=== PATIENT | male | born 1960 | race Caucasian/White ===

== ENCOUNTER → 2016-12-31 | Outpatient (CLI) | payer BC ==
[~2016-12-31] MED LIST: ACETAMINOPHEN PO; FISH OIL 1,0001 CAP PO; GLUCOSAMINE & C1 CAP PO; MULTI VITAMIN1 EACH PO; ROXICODONE5 MG PO; VITAMIN C500 M1 PO; XARELTO20 MG PO; ZINC30 M1 PO; ZINC50 M1 PO
--- NOTE | ~2016-12-31 | NM23 ---
[facility] Service of [facility] & [facility] RADIOLOGY TEXT RESULTS PATIENT: JAYNA BATES LOCATION: [facility] : 64 UNIT #: [id number] AGE: [address]: Toby Vazquez MD SEX: M ORDER DR: [id number] [id number] [facility]. [place], [place] [address] [id number] O MR#: [id number] Acc #: [id number] NAME: JAYNA BATES : 1960 SEX: M STUDY DATE/TIME: 12/31/2016 12:05 UNIT: [facility] ROOM: STUDY DESCRIPTION: OR I-131 Total Body Scan Attending Physician: Toby Vazquez M.D. Referring Physician: Toby Vazquez M.D. Ordering Physician: Toby Vazquez M.D. Primary Care Physician: Scott Fontanez M.D. MEDICAL IMAGING REPORT This report is preliminary unless electronic signature is present EXAM Iodine-131 whole-body body scan INDICATIONS Thyroid cancer. FINDINGS Patient was given 4.90 mCi of Iodine-131 on 12/29/2016, and 48 hours later anterior and posterior images of the body were obtained with oblique views of the neck. There is physiologic uptake in the stomach and bladder and salivary tissue. There is minimal uptake in the thyroid bed. IMPRESSION There is faint uptake in the thyroid bed suggesting some residual thyroid tissue or tumor in that region. The uptake has a somewhat band-like distribution in the lower neck. Otherwise study is normal. Dictated by... Jeff Nieves M.D. THIS IS AN ELECTRONICALLY VERIFIED REPORT Jeff Nieves M.D. at 12/31/2016 3:20 PM FEL/to TD: 12/31/2016 14:43 JOB #: [id number] MEDICAL IMAGING REPORT COPY
--- NOTE | ~2016-12-31 | OR ---
Unit #: [id number] #: [id number] Patient: SALOMON GALO [id number] [address] [address] [id number] O MR#: [id number] NAME: SALOMON GALO ROOM: Date of Procedure: 12/31/2016 Admission Date: 12/31/2016 Surgeon: Toby Vazquez M.D. : 1960 Attending Physician: Toby Vazquez M.D. Referring Physician: Toby Vazquez M.D. Primary Care Physician: Scott Fontanez M.D. 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 PROCEDURE I-131 ablation. INDICATIONS Mr. Salomon Galo is a pleasant 56-year-old gentleman who carries a diagnosis of stage IIIA adenocarcinoma of the rectum. He has undergone complete treatment including resection, chemotherapy, and radiotherapy. Patient was found recently to have a thyroid nodule on PET CT imaging. This was biopsied and found to be benign. However, posterior to the thyroid nodule there was a suspicious lesion which was ultimately needled and found to be papillary carcinoma. As a result, patient underwent total thyroidectomy dated November 24, 2016. He had a 26 gram gland with a 1.5 cm tumor located in the right lobe and a 3 mm tumor located in the isthmus. Patient subsequently was placed on replacement therapy, and he was seen in consultation December 08, 2016. Patient was informed he would need repeat I-131 scanning to see if there was any residual disease. This was, in fact, performed today, December 31, 2016. Patient initially had a 5 mCi dose. There was faint uptake in the thyroid bed suggestive of potential residual thyroid tissue versus malignancy. As a result, patient was deemed a candidate for radioactive ablation. PROCEDURE Patient was seen in the nuclear medicine suite at [facility]. A prescribed dose of 150 mCi I-131 had been ordered. This was delivered an oral route. The actual assay dose was 159 mCi I-131. Patient was given complete instructions including isolation for four days, as well as low-iodine diet and general radiation exposure precautions. He is instructed to return to our office in four weeks for further followup evaluation. He will once again begin replacement Synthroid therapy in approximately three days. Patient will call if he has any difficulty in the interim. No complications were experienced, and patient is in very stable condition experiencing very minimal lethargy as a result of Synthroid withdrawal. Dictated by... José Miguel Johns Unit #: [id number] #: [id number] Patient: SALOMON GALO TD: 12/31/2016 21:30 JOB #: [id number] CC: José Miguel Mayes M.D. PROCEDURE OPERATIVE NOTE X Tboy Vazquez MD PROCEDURE OPERATIVE NOTE
== END | disposition home or self-care (01) ==
LOC: CNUC 10:42
DX: C73 Malignant neoplasm of thyroid gland (principal); C20 Malignant neoplasm of rectum; Z79.899 Other long term (current) drug therapy
CPT/HCPCS: 78018; 79005; A9517; A9528